=== PATIENT | female | born 1980 | race African-American/Black ===

== ENCOUNTER 2025-08-15 11:34 | Outpatient (CLI) | payer BC | END 2025-08-15 11:35 | disposition home or self-care (01) | LOC: SCSRAD 11:34 | PROVIDERS: ATTEND Family Medicine | DX: M54.50 Low back pain, unspecified (principal); M51.369 Other intervertebral disc degeneration, lumbar region without mention of lumbar back pain or lower extremity pain; M51.379 Other intervertebral disc degeneration, lumbosacral region without mention of lumbar back pain or lower extremity pain | CPT/HCPCS: 72100 ==